=== PATIENT | female | born 1990 | race Caucasian/White ===

== ENCOUNTER 2017-12-20 22:46 | Emergency (ER) | payer OTHER ==
[2017-12-20] MEDS ORDERED: SOD CHLORIDE 0.9% 1,000 ML IV (22:58)
[2017-12-20] MEDS ORDERED: LEVETIRACETAM 1000 MG (PMX) 100 ML IVPB (23:00)
[2017-12-20] MEDS ORDERED: LORAZEPAM 2 MG INJ IV (23:00)
== END 2017-12-20 23:15 | disposition home or self-care (01) ==
LOC: E/R 23:15
DX: Z53.21 Procedure and treatment not carried out due to patient leaving prior to being seen by health care provider (principal)
CPT/HCPCS: J1953

== ENCOUNTER 2018-10-28 16:39 | Emergency (ER) | payer OTHER ==
[2018-10-28] MEDS: LORAZEPAM 2 MG INJ IV (17:54)
[2018-10-28] MEDS: LEVETIRACETAM 500 MG (PMX) 100 ML IVPB (18:08)
== END 2018-10-29 08:23 | disposition home or self-care (01) ==
LOC: E/R 10-29 08:23
DX: G40.909 Epilepsy, unspecified, not intractable, without status epilepticus (principal)
CPT/HCPCS: 96374; 96375; 99284-25

== ENCOUNTER 2019-01-04 10:59 | Emergency (ER) | payer OTHER ==
[2019-01-04 12:08] LABS: URINE PH (Dip) POC 5.5 (5.0-8.5)
[2019-01-04 12:08] LABS: URINE BLOOD (Dip) POC Trace-lysed (NEGATIVE); URINE GLUCOSE (Dip) POC Negative (NEGATIVE); URINE KETONES (Dip) POC Trace (NEGATIVE); URINE LEUKOCYTE EST (Dip) POC Negative (NEGATIVE); URINE NITRITE (Dip) POC Negative (NEGATIVE); URINE TOTAL PROTEIN POC Negative (NEGATIVE)
[2019-01-04] MEDS: KETOROLAC 30 MG INJ IM (12:20)
== END 2019-01-04 14:24 | disposition home or self-care (01) ==
LOC: FTE 10:59
DX: S13.9XXA Sprain of joints and ligaments of unspecified parts of neck, initial encounter (principal); W06.XXXA Fall from bed, initial encounter; Y92.9 Unspecified place or not applicable
CPT/HCPCS: 81003; 81025; 96372; 99284-25